=== PATIENT | male | born 1980 | race African-American/Black ===

== ENCOUNTER 2017-08-28 19:16 | Emergency (ER) | payer OTHER ==
[~2017-08-28] VITALS: Ht 182.9 cm; Wt 118.0 kg
[2017-08-29] MEDS ORDERED: INDOCIN50 MG PO (00:46)
[2017-08-29] MEDS ORDERED: VALIUM5 MG PO (00:46)
[2017-08-29] MEDS ORDERED: NORCO 7.5/321 TABLET PO (00:46)
[2017-08-29 01:07] VITALS: BP 129/92
== END 2017-08-29 01:08 | disposition home or self-care (01) ==
LOC: EXP 19:16 → EME 19:16 → EXP 08-29 01:08
DX: S13.9XXA Sprain of joints and ligaments of unspecified parts of neck, initial encounter (principal); S39.012A Strain of muscle, fascia and tendon of lower back, initial encounter; M53.3 Sacrococcygeal disorders, not elsewhere classified; V43.52XA Car driver injured in collision with other type car in traffic accident, initial encounter; Y92.410 Unspecified street and highway as the place of occurrence of the external cause; J45.909 Unspecified asthma, uncomplicated; F17.200 Nicotine dependence, unspecified, uncomplicated; Z90.81 Acquired absence of spleen; Z88.0 Allergy status to penicillin
CPT/HCPCS: 72040; 72100; 72220; 99281; 99283; J1885